=== PATIENT | male | born 1945 | race Caucasian/White ===

== ENCOUNTER → 2017-04-23 | Outpatient (CLI) | payer BC ==
[2017-04-23 09:49] LABS: BASO % 0.5 % (0.0-1.0); EOS # 0.1 K/mm3 (0.0-0.50); LARGE UNSTAINED CELL # 0.1 K/mm3 (0.0-0.4); LARGE UNSTAINED CELL % 1.3 % (0.0-4.0); LYMPH # 1.2 K/mm3 (1.5-4.5); LYMPH % 20.1 % (24.0-44.0); MEAN CORPUSCULAR HEMOGLOBIN 31.4 pg (27.0-33.0); MEAN CORPUSCULAR HGB CONC 33.9 g/dl (32.0-36.5); MEAN CORPUSCULAR VOLUME 92.6 fl (80.0-96.0); MONO # 0.3 K/mm3 (0.0-0.8); MONO % 5.9 % (0.0-5.0); NEUTROPHILS % 70.3 % (36.0-66.0); PLATELET COUNT, AUTOMATED 154 k/mm3 (150-450); RED CELL DISTRIBUTION WIDTH 12.6 % (11.5-14.5); WHITE BLOOD COUNT 5.6 K/mm3 (4.0-10.0)
[2017-04-23 10:06] LABS: ALBUMIN 3.6 GM/DL (3.2-5.2); ALBUMIN/GLOBULIN RATIO 1.16 (1.00-1.93); BILIRUBIN,TOTAL 0.4 MG/DL (0.2-1.0); CALCIUM LEVEL 8.4 MG/DL (8.8-10.2); CREATININE FOR GFR 1.32 MG/DL (0.70-1.30); GLOMERULAR FILTRATION RATE 57.3 (>49); POTASSIUM SERUM 4.6 MEQ/L (3.5-5.1); TOTAL PROTEIN 6.7 GM/DL (6.4-8.2)
== END ==
LOC: M LAB 08:56
PROVIDERS: ATTEND Internal Medicine
DX: Z00.00 Encounter for general adult medical examination without abnormal findings (principal); Z12.5 Encounter for screening for malignant neoplasm of prostate; E78.00 Pure hypercholesterolemia, unspecified; Z82.49 Family history of ischemic heart disease and other diseases of the circulatory system
CPT/HCPCS: 36415; 80053; 80061; 85025; G0103

== ENCOUNTER → 2018-05-21 | Outpatient (REF) | payer BC | LOC: M SFHCPLAZ 10:15 | DX: L82.1 Other seborrheic keratosis (principal); L57.0 Actinic keratosis; C44.309 Unspecified malignant neoplasm of skin of other parts of face | CPT/HCPCS: 88305 ==

== ENCOUNTER → 2018-06-24 | Outpatient (REF) | payer BC | LOC: M LAB REF 12:08 | DX: C44.309 Unspecified malignant neoplasm of skin of other parts of face (principal) | CPT/HCPCS: 88305 ==

== ENCOUNTER → 2018-10-30 | Outpatient (CLI) | payer BC ==
[2018-10-30 11:00] LABS: BASO % 0.5 % (0.0-1.0); EOS # 0.1 10^3/uL (0.0-0.50); EOS % 1.9 % (0.0-3.0); HEMOGLOBIN 15.2 g/dl (13.5-17.5); LYMPH # 1.2 10^3/uL (1.5-4.5); LYMPH % 20.9 % (24.0-44.0); MEAN CORPUSCULAR HEMOGLOBIN 31.2 pg (27.0-33.0); MEAN CORPUSCULAR HGB CONC 33.8 g/dl (32.0-36.5); MEAN CORPUSCULAR VOLUME 92.4 fl (80.0-96.0); MONO # 0.4 10^3/uL (0.0-0.8); MONO % 7.4 % (0.0-5.0); NEUTROPHILS % 68.8 % (36.0-66.0); PLATELET COUNT, AUTOMATED 128 10^3/uL (150-450); RED BLOOD COUNT 4.87 10^6/uL (4.30-6.10); WHITE BLOOD COUNT 5.8 10^3/uL (4.0-10.0)
[2018-10-30 11:36] LABS: ALBUMIN 3.8 GM/DL (3.2-5.2); ALT/SGPT 32 U/L (12-78); BILIRUBIN,TOTAL 0.4 MG/DL (0.2-1.0); BLOOD UREA NITROGEN 15 MG/DL (7-18); CALCIUM LEVEL 8.4 MG/DL (8.8-10.2); CARBON DIOXIDE LEVEL 28 MEQ/L (21-32); CHLORIDE LEVEL 108 MEQ/L (98-107); CHOLESTEROL LEVEL 139 MG/DL (<200); CHOLESTEROL RISK RATIO 3.021 (<5); CREATININE FOR GFR 1.23 MG/DL (0.70-1.30); GLOMERULAR FILTRATION RATE > 60.0 (>42); GLUCOSE, FASTING 95 MG/DL (70-100); HDL CHOLESTEROL 46 MG/DL (>40); LDL CHOLESTEROL 78 MG/DL (<100); NON-HDL-C 93 MG/DL; POTASSIUM SERUM 4.8 MEQ/L (3.5-5.1); SODIUM LEVEL 141 MEQ/L (136-145); TOTAL PROTEIN 6.5 GM/DL (6.4-8.2); TRIGLYCERIDES LEVEL 77 MG/DL (<150)
== END ==
LOC: M LAB 10:27
PROVIDERS: ATTEND Internal Medicine
DX: Z00.00 Encounter for general adult medical examination without abnormal findings (principal); E78.00 Pure hypercholesterolemia, unspecified; Z12.5 Encounter for screening for malignant neoplasm of prostate; Z82.49 Family history of ischemic heart disease and other diseases of the circulatory system
CPT/HCPCS: 36415; 80053; 80061; 85025; G0103

== ENCOUNTER → 2019-09-03 | Outpatient (CLI) | payer BC ==
--- NOTE | 2019-09-03 13:01 | REP ---
Two-view chest: 09/03/2019. Indication: Cough. Comparison: 06/15/2015. Findings: There is no air space consolidation, pleural effusion or pneumothorax. The cardiomediastinal silhouette is unremarkable. Impression: No acute cardiopulmonary process. Electronically Signed by Jose Ventura DO 09/03/2019 09:26 A
== END ==
LOC: M WUC 09:10
PROVIDERS: ATTEND Registered Nurse
DX: R05 Cough (principal)

== ENCOUNTER → 2019-09-03 | Outpatient (REF) | payer BC ==
[2019-09-03 13:04] LABS: BASO % 0.6 % (0.0-1.0); EOS # 0.2 10^3/uL (0.0-0.5); EOS % 3.2 % (0.0-3.0); HEMATOCRIT 43.2 % (42.0-52.0); HEMOGLOBIN 14.2 g/dl (13.5-17.5); LYMPH # 1.3 10^3/uL (1.5-5.0); LYMPH % 24.8 % (24.0-44.0); MEAN CORPUSCULAR HEMOGLOBIN 30.7 pg (27.0-33.0); MEAN CORPUSCULAR HGB CONC 32.9 g/dl (32.0-36.5); MEAN CORPUSCULAR VOLUME 93.3 fl (80.0-96.0); MONO # 0.4 10^3/uL (0.0-0.8); MONO % 8.3 % (0.0-5.0); NEUTROPHILS # 3.3 10^3/uL (1.5-8.5); NEUTROPHILS % 62.3 % (36.0-66.0); PLATELET COUNT, AUTOMATED 148 10^3/uL (150-450); RED BLOOD COUNT 4.63 10^6/uL (4.30-6.10); WHITE BLOOD COUNT 5.3 10^3/uL (4.0-10.0)
[2019-09-03 13:31] LABS: CALCIUM LEVEL 7.9 MG/DL (8.8-10.2); CREATININE FOR GFR 1.29 MG/DL (0.70-1.30); GLOMERULAR FILTRATION RATE 58.3 (>42); POTASSIUM SERUM 4.2 MEQ/L (3.5-5.1)
== END ==
LOC: M LAB REF 12:21
PROVIDERS: ATTEND Registered Nurse
DX: I10 Essential (primary) hypertension (principal); R05 Cough

== ENCOUNTER → 2019-10-08 | Outpatient (CLI) | payer BC ==
--- NOTE | 2019-10-08 15:46 | REP ---
The right knee five views : There is no fracture or dislocation. Mineralization and joint spaces are normal. There are no calcifications or foreign bodies. Impression: Negative right knee . Electronically Signed by Marino Yao MD 10/08/2019 03:38 P
== END ==
LOC: M WUC 12:23
PROVIDERS: ATTEND Physician Assistant
DX: M25.561 Pain in right knee (principal)

== ENCOUNTER → 2019-11-02 | Outpatient (CLI) | payer BC ==
[2019-11-02 10:13] LABS: BASO % 0.6 % (0.0-1.0); EOS # 0.1 10^3/uL (0.0-0.5); EOS % 1.8 % (0.0-3.0); HEMATOCRIT 40.4 % (42.0-52.0); HEMOGLOBIN 13.8 g/dl (13.5-17.5); LYMPH % 19.1 % (24.0-44.0); MEAN CORPUSCULAR HEMOGLOBIN 31.1 pg (27.0-33.0); MEAN CORPUSCULAR HGB CONC 34.2 g/dl (32.0-36.5); MONO # 0.5 10^3/uL (0.0-0.8); MONO % 8.3 % (0.0-5.0); NEUTROPHILS # 3.8 10^3/uL (1.5-8.5); NEUTROPHILS % 69.8 % (36.0-66.0); PLATELET COUNT, AUTOMATED 144 10^3/uL (150-450); RED BLOOD COUNT 4.44 10^6/uL (4.30-6.10); WHITE BLOOD COUNT 5.4 10^3/uL (4.0-10.0)
[2019-11-02 10:44] LABS: ALBUMIN 2.8 GM/DL (3.2-5.2); ALT/SGPT 28 U/L (12-78); BILIRUBIN,TOTAL 0.4 MG/DL (0.2-1.0); BLOOD UREA NITROGEN 22 MG/DL (7-18); CALCIUM LEVEL 8.5 MG/DL (8.8-10.2); CARBON DIOXIDE LEVEL 32 MEQ/L (21-32); CHLORIDE LEVEL 107 MEQ/L (98-107); CHOLESTEROL LEVEL 212 MG/DL (<200); CHOLESTEROL RISK RATIO 3.593 (<5); CREATININE FOR GFR 1.12 MG/DL (0.70-1.30); GLOMERULAR FILTRATION RATE > 60.0 (>42); GLUCOSE, FASTING 100 MG/DL (70-100); HDL CHOLESTEROL 59 MG/DL (>40); LDL CHOLESTEROL 138 MG/DL (<100); NON-HDL-C 153 MG/DL; POTASSIUM SERUM 4.3 MEQ/L (3.5-5.1); SODIUM LEVEL 141 MEQ/L (136-145); TOTAL PROTEIN 5.6 GM/DL (6.4-8.2); TRIGLYCERIDES LEVEL 76 MG/DL (<150)
== END ==
LOC: M LAB 09:19
PROVIDERS: ATTEND Internal Medicine
DX: I10 Essential (primary) hypertension (principal); Z12.5 Encounter for screening for malignant neoplasm of prostate; E78.00 Pure hypercholesterolemia, unspecified
CPT/HCPCS: 36415; 80053; 80061; 85025; G0103

== ENCOUNTER → 2020-03-03 | Outpatient (CLI) | payer BC ==
[2020-03-03 09:20] LABS: CALCIUM LEVEL 7.3 MG/DL (8.8-10.2); CREATININE FOR GFR 1.78 MG/DL (0.70-1.30); GLOMERULAR FILTRATION RATE 40.2 (>42); POTASSIUM SERUM 3.8 MEQ/L (3.5-5.1)
== END ==
LOC: M LAB 08:20
PROVIDERS: ATTEND Physician Assistant Medical
DX: I12.9 Hypertensive chronic kidney disease with stage 1 through stage 4 chronic kidney disease, or unspecified chronic kidney disease (principal); N18.3 Chronic kidney disease, stage 3 (moderate)

== ENCOUNTER → 2020-03-08 | Outpatient (REF) | payer BC ==
[~2020-03-08] MED LIST: CRES10TA PO; ELIQ2.5T PO; LIPI20TA PO; LISI-538 PO; OMEP10CASR PO; PRED20TA PO; SYNT25TA PO; TORS20TA2 PO
[2020-03-08 13:15] LABS: APPEARANCE, URINE HAZY (CLEAR); BACTERIA, URINE AUTO NEGATIVE (NEGATIVE); BILIRUBIN, URINE AUTO NEGATIVE (NEGATIVE); BLOOD, URINE BLOOD 1+ (NEGATIVE); COLOR, URINE YELLOW (YELLOW); GLUCOSE, URINE (UA) AUTO NEGATIVE (NEGATIVE); KETONE, URINE AUTO NEGATIVE (NEGATIVE); LEUKOCYTE ESTERASE, URINE AUTO NEGATIVE (NEGATIVE); MUCUS, URINE SMALL (NEGATIVE); NITRITE, URINE AUTO NEGATIVE (NEGATIVE); PROTEIN, URINE AUTO 3+ mg/dL (NEGATIVE); RBC, URINE AUTO 6 /HPF (0-3); SQUAMOUS EPITHELIAL CELL UR AU 0 /HPF (0-6); UROBILINOGEN, URINE AUTO 0.2 mg/dL (0.0-2.0); WBC, URINE AUTO 2 /HPF (0-3)
[2020-03-08 16:38] LABS: ALBUMIN 2.2 GM/DL (3.2-5.2); BILIRUBIN,TOTAL 0.3 MG/DL (0.2-1.0); CREATININE FOR GFR 1.59 MG/DL (0.70-1.30); GLOMERULAR FILTRATION RATE 45.8 (>42); POTASSIUM SERUM 3.8 MEQ/L (3.5-5.1); THYROID STIMULATING HORMONE 10.4 uIU/ML (0.358-3.740)
== END ==
LOC: M LAB REF 12:39
PROVIDERS: ATTEND Physician Assistant Medical
DX: I12.9 Hypertensive chronic kidney disease with stage 1 through stage 4 chronic kidney disease, or unspecified chronic kidney disease (principal); N18.3 Chronic kidney disease, stage 3 (moderate)

== ENCOUNTER → 2020-03-21 | Outpatient (REF) | payer BC ==
[2020-03-21 18:00] LABS: BACTERIA, URINE AUTO NEGATIVE (NEGATIVE); MUCUS, URINE SMALL (NEGATIVE); RBC, URINE AUTO 4 /HPF (0-3); SQUAMOUS EPITHELIAL CELL UR AU 0 /HPF (0-6); WBC, URINE AUTO 2 /HPF (0-3)
[2020-03-21 18:07] LABS: TOTAL PROTEIN 4.6 GM/DL (6.4-8.2)
[2020-05-31 14:31] LABS: ALBUMIN 2.45 GM/DL (3.29-5.55); ALBUMIN % 53.2 % (55.8-66.1); ALPHA-1-GLOBULIN % 5.9 % (2.9-4.9); ALPHA-1-GLOBULINS 0.27 GM/DL (0.17-0.41); ALPHA-2-GLOBULINS 0.89 GM/DL (0.42-0.99); ALPHA-2-GLOBULINS % 19.3 % (7.1-11.8); BETA-1-GLOBULINS 0.29 GM/DL (0.28-0.60); BETA-1-GLOBULINS % 6.3 % (4.7-7.2); BETA-2-GLOBULINS 0.26 GM/DL (0.19-0.55); BETA-2-GLOBULINS % 5.7 % (3.2-6.5); GAMMA GLOBULIN % 9.6 % (11.1-18.8); GAMMA GLOBULINS 0.44 GM/DL (0.65-1.58)
== END ==
LOC: M LAB REF 16:54
PROVIDERS: ATTEND Internal Medicine
DX: R80.9 Proteinuria, unspecified (principal)

== ENCOUNTER → 2020-03-23 | Outpatient (REF) | payer BC ==
[2020-03-23 09:18] LABS: TOTAL PROTEIN 24 HOUR URINE 11206.8 MG/24HR (50-150); URINE TOTAL PROTEIN 1245.2 MG/DL (0-12)
== END ==
LOC: M LAB REF 08:41
PROVIDERS: ATTEND Internal Medicine
DX: R80.9 Proteinuria, unspecified (principal)

== ENCOUNTER → 2020-03-28 | Outpatient (REF) | payer BC ==
[2020-04-26 13:57] LABS: ANTI DS-DNA AB SEE SEPARATE REPORT; ANTI-GLOMERULAR BASEMENT MEMB See Separate Report; ANTINUCLEAR ANTIBODIES DIRECT See Separate Report
[2020-04-26 14:10] LABS: FREE KAPPA LIGHT CHAINS SERUM SEE SEPARATE REPORT
[2020-04-26 14:31] LABS: CYTOPLASMIC NEUTROP AB ANCA-C SEE SEPARATE REPORT
[2020-05-03 11:16] LABS: COMPLEMENT C3 114 MG/DL (90-180); COMPLEMENT C4 26 MG/DL (10-40); HEPATITIS B CORE ANTIBODY IGM NEGATIVE (NEGATIVE); HEPATITIS B SURFACE ANTIBODY NEGATIVE (POSITIVE); HEPATITIS B SURFACE ANTIGEN NEGATIVE (NEGATIVE); IRON (FE) 115 UG/DL (65-175)
[2020-05-03 11:17] LABS: HEPATITIS C VIRUS ABY INDEX 0.1 INDEX (<0.8); PERCENT SATURATION 65.3 % (19.7-50.0); TOTAL IRON BINDING CAPACITY 176 UG/DL (250-450)
[2020-05-03 11:19] LABS: FOLATE 12.4 NG/ML; TOTAL PROTEIN 4.3 GM/DL (6.4-8.2); VITAMIN B12 LEVEL 539 PG/ML
[2020-05-03 11:20] LABS: FERRITIN 265 NG/ML (26-388)
== END ==
LOC: M LAB REF 12:23
PROVIDERS: ATTEND Internal Medicine Nephrology
DX: N04.9 Nephrotic syndrome with unspecified morphologic changes (principal); D64.9 Anemia, unspecified

== ENCOUNTER → 2020-04-11 | Outpatient (REF) | payer BC ==
[2020-05-23 08:33] LABS: Lyme Disease IgG/IgM Antibodie See Separate Report
== END ==
LOC: M LAB REF 12:14
PROVIDERS: ATTEND Internal Medicine Nephrology
DX: N04.9 Nephrotic syndrome with unspecified morphologic changes (principal)

== ENCOUNTER → 2020-04-26 | Outpatient (POV) | payer BC ==
--- NOTE | 2020-05-02 13:11 | IRCOV ---
[facility] IR Consult Office Visit IR Consult Office Visit DATE: Apr 26, 2020 Patient agreed to this telephone consultation. I spent 30 minutes reviewing patient's history and talking to the patient on the phone. REASON FOR CONSULTATION/CHIEF COMPLAINT: Proteinuria. HISTORY OF PRESENT ILLNESS: 74-year-old male previously healthy, presented with bilateral lower extremity swelling after a viral infection in August 2019. Viral infection was associated with cough, generalized weakness, congestion and wheezing. Soon after recovery, he developed bilateral lower extremity swelling and fluid overload, he was diagnosed with hypertension, hypothyroidism and proteinuria. He was started on diltiazem for his hypertension. His edema was treated with Lasix. His renal function continues to deteriorate. Patient is referred for kidney biopsy. No prior kidney biopsies. No bleeding disorders. Patient has started on Eliquis by nephrology for risk of DVT in setting of nephrotic syndrome. Patient stopped taking aspirin weeks ago. No family history of kidney disease. No prior problems with sedation. ALLERGIES: Please see below. HOME MEDICATIONS: Please see below. PAST MEDICAL HISTORY: Hypercholesterolemia Essential hypertension Renal failure Hypothyroidism Proteinuria BPH Skin cancer PAST SURGICAL HISTORY: Cholecystectomy FAMILY HISTORY: Heart disease SOCIAL HISTORY: Nonsmoker. Occasional alcohol. Denies drugs. REVIEW OF SYSTEMS: Otherwise negative. PHYSICAL EXAMINATION: No video on patient site. LABORATORY DATA: 03/28/2020: Hemoglobin 12.7 hematocrit 36.6 WBC 5.9 platelets 196 sodium 136.8 potassium 4.3 BUN 24.9 creatinine 1.65 GFR 41. Creatinine in September 2019: 1.2 03/23/2020 24 hour urine: protein 11.2 g Imaging: No imaging ASSESSMENT/PLAN: 74-year-old male with hypertension, hypothyroidism, hypercholesterolemia and progressive worsening renal failure over the past several months associated with nephrotic range proteinuria. We discussed the risks and benefits of kidney biopsy and patient would like to proceed. We have scheduled the patient for a kidney biopsy. Patient to hold his Eliquis 48 hours prior to biopsy and resume 24 hours postbiopsy. I spent 30 minutes in consultation with the patient. Thank you for this referral. Nasrin Christy: Danny Gibbons Allergies Coded Allergies: MS - No Known Drug Allergy (Unverified Allergy, Unknown, 12/02/12) Home Medications Scheduled Apixaban (Eliquis), 2.5 MG PO BID, (Reported) Levothyroxine Sodium (Synthroid), 25 MCG PO DAILY, (Reported) Lisinopril (Lisinopril), 20 MG PO DAILY, (Reported) Rosuvastatin Calcium (Crestor), 10 MG PO QHS, (Reported) Torsemide (Torsemide), 40 MG PO DAILY, (Reported) WILLY LOCO MD May 02, 2020 13:11
== END ==
LOC: M TMIRPOV 08:15
PROVIDERS: ATTEND Radiology Diagnostic Radiology
DX: R80.9 Proteinuria, unspecified (principal); R60.0 Localized edema; I10 Essential (primary) hypertension; E03.9 Hypothyroidism, unspecified; E78.00 Pure hypercholesterolemia, unspecified; N40.0 Benign prostatic hyperplasia without lower urinary tract symptoms; Z85.828 Personal history of other malignant neoplasm of skin

== ENCOUNTER → 2020-04-28 | Outpatient (CLI) | payer BC ==
[~2020-04-28] MED LIST changes: +LIDOCAINE 1% MDV 20ML VIAL As Ordered ONE; +MIDAZOLAM INJ 2MG/2ML VIAL (J2250 PER 1MG) As Ordered ONE; +PROMETHAZINE INJ 25 MG/ML VIAL (J2550) As Ordered ONE; +diphenhydrAMINE 50MG/ML VIAL (J1200) As Ordered ONE; +fentaNYL 100 MCG/2 ML INJECTION (J3010) As Ordered ONE
--- NOTE | 2020-04-28 09:23 | IRHP ---
[facility] IR Pre-Procedure H & P General Date of Service: Apr 28, 2020 Procedure: Same Day Surgery Interval History and Physical I have seen the patient and reviewed last H & P performed within 30 days. There is no significant interval change. History of Present Illness Chief Complaint The patient is a 74-year-old male admitted with a reason for visit of Nephrotic Syndrome, Htn. PRE-PROCEDURE DIAGNOSIS: nephrotic syndrome HEART: normal rate. LUNGS: normal breathing at rest. ASA Classification ASA Classification: III-Severe systemic dis. Mallampati Score: II NPO: Yes Problems with prior sedation: No Obstructive Sleep Apnea: No Plan moderate sedation Allergies Coded Allergies: MS - No Known Drug Allergy (Unverified Allergy, Unknown, 12/02/12) Home Medications Scheduled Apixaban (Eliquis), 2.5 MG PO BID, (Reported) Levothyroxine Sodium (Synthroid), 25 MCG PO DAILY, (Reported) Lisinopril (Lisinopril), 20 MG PO DAILY, (Reported) Rosuvastatin Calcium (Crestor), 10 MG PO QHS, (Reported) Torsemide (Torsemide), 40 MG PO DAILY, (Reported) VS, I&O, 24H, Fishbone Vital Signs/I&O Vital Signs Date Time Temp Pulse Resp B/P (MAP) Pulse Ox O2 Delivery O2 Flow Rate FiO2 04/28/20 08:10 98.3 62 18 97 Room Air WILLY LOCO MD Apr 28, 2020 09:23
[2020-04-28 12:55] VITALS: BP 164/81
--- NOTE | 2020-05-26 10:26 | POST-OPPD ---
Postoperative Procedure Note Date Of Procedure: Apr 28, 2020 Time Of Procedure: 10:[address] Guided kidney biopsy IR Moderate sedation Clinical Information:Renal failure Physician: Dr. Tran. Procedure: The patient was advised of the benefits, risks, and alternatives of the procedure and informed consent was obtained. A time out was performed with verification of the patient's name, MRN, site of procedure, and type of procedure to be performed. The patient was positioned in the prone position on the CT table. The site was prepped and draped in the usual sterile fashion. Moderate sedation was performed by the physician including the presence of an independent trained observer who assisted in monitoring the patient's level of consciousness and physiological status. Following the administration of fentanyl and Versed, the physician spent 45 minutes of continuous [id number] time with the patient. Preliminary CT demonstrates unremarkable left kidney. The skin and expected tract were anesthestized with lidocaine.A 17-gauge coaxial needle was advanced under intermittent CT guidance to the left kidney lower pole cortex. An 18-gauge Biopince device was advanced through the coaxial needle and used to obtain 3 cores through the lower pole of the left kidney, with CT confirmation. The needle was removed, pressure held and hemostasis achieved. A follow-up CT through the area demonstrates no significant hematoma. A sterile dressing was applied to the site. The patient tolerated the procedure well and was returned to the PRU in stable condition. EBL:Less than 5 mL. Complications:None Conclusion:1. CT demonstrates unremarkable left kidney 2. Successful CT-guided renal biopsy. Patient to follow-up with referring provider for biopsy results. Thank you for this referral WILLY TRAN MD May 26, 2020 10:26
== END ==
LOC: M IRPRO 08:02
PROVIDERS: ATTEND Internal Medicine Nephrology
DX: N04.9 Nephrotic syndrome with unspecified morphologic changes (principal); N18.3 Chronic kidney disease, stage 3 (moderate); R60.1 Generalized edema
CPT/HCPCS: 50200; 77012; 88300; 99152; 99153; J2250; J3010

== ENCOUNTER → 2020-05-10 | Outpatient (REF) | payer BC ==
[~2020-05-10] MED LIST changes: -LIDOCAINE 1% MDV 20ML VIAL As Ordered ONE; -MIDAZOLAM INJ 2MG/2ML VIAL (J2250 PER 1MG) As Ordered ONE; -PROMETHAZINE INJ 25 MG/ML VIAL (J2550) As Ordered ONE; -diphenhydrAMINE 50MG/ML VIAL (J1200) As Ordered ONE; -fentaNYL 100 MCG/2 ML INJECTION (J3010) As Ordered ONE
== END ==
LOC: M LAB REF 19:49
PROVIDERS: ATTEND Internal Medicine Nephrology
DX: R60.1 Generalized edema (principal); D68.69 Other thrombophilia; I12.9 Hypertensive chronic kidney disease with stage 1 through stage 4 chronic kidney disease, or unspecified chronic kidney disease; N18.9 Chronic kidney disease, unspecified

== ENCOUNTER → 2020-05-12 | Outpatient (CLI) | payer BC | LOC: M LAB 10:00 | PROVIDERS: ATTEND Internal Medicine Nephrology | DX: N04.2 Nephrotic syndrome with diffuse membranous glomerulonephritis (principal) ==

== ENCOUNTER → 2020-05-13 | Outpatient (REF) | payer BC ==
[2020-05-13 22:46] LABS: CREATININE 24 HOUR, URINE 1897.2 MG/24HR (950-2500)
[2020-05-13 22:58] LABS: URINE TOTAL PROTEIN 289.5 MG/DL (0-12)
[2020-05-13 22:59] LABS: TOTAL PROTEIN 24 HOUR URINE 4429.3 MG/24HR (50-150)
== END ==
LOC: M LAB REF 16:50
PROVIDERS: ATTEND Internal Medicine Nephrology
DX: N04.2 Nephrotic syndrome with diffuse membranous glomerulonephritis (principal)

== ENCOUNTER → 2020-06-01 | Outpatient (CLI) | payer BC ==
[~2020-06-01] MED LIST changes: +GASTROGRAFIN SOLUTION 30ML (Q9963) As Ordered ONE; +ISOVUE-370 76% 100ML VIAL As Ordered ONE
--- NOTE | 2020-06-08 16:50 | REP ---
CT ABDOMEN AND PELVIS WITH IV AND ORAL CONTRAST HISTORY: Nephrotic syndrome, generalized edema, hypertensive chronic kidney disease. CT CONTRAST DOSE: 100 mL of intravenous Isovue 370. FINDINGS: Digital preliminary putty mixer and applier radiograph demonstrates right upper quadrant clips, a dextroconvex lumbar curvature, and a normal bowel gas pattern. The liver is normal in size, homogeneous in texture. The spleen is unremarkable. The gallbladder is surgically absent. No biliary ductal dilation is seen. No abnormality is noted in the pancreas, normal adrenal glands are seen bilaterally. The kidneys enhanced symmetrically and are morphologically intact. The left kidney measures 12.6 cm in length. Right renal length measurement is 11.3 cm. No hydronephrosis is seen. No intrarenal calculus is observed. Normal caliber aorta is seen. No retroperitoneal mass or adenopathy is seen. Iliac arteries are tortuous, but appear widely patent. Small bowel loops are unremarkable in the upper abdomen. There is largely empty transverse colon, question mural thickening, and pericolonic stranding raising suspicion of enterocolitis. There are scattered diverticulosis changes in the descending colon and mild diverticulosis is seen in the sigmoid colon without CT evidence of diverticulitis. Normal appendix is seen. No abdominal wall defect is observed. No bony destructive lesion is appreciated. IMPRESSION: Post cholecystectomy. Question enterocolitis affecting the transverse colon. Scattered left colonic diverticulosis. Otherwise negative. MTDD
--- NOTE | 2020-06-08 16:51 | REP ---
CT CHEST WITH INTRAVENOUS (IV) CONTRAST HISTORY: Nephrotic syndrome. Diffuse membranous glomerulonephritis. Hypertensive chronic kidney disease. Generalized edema. CT CONTRAST DOSE: 100 mL of intravenous Isovue-[address] administered[address] CHEST [address]: None. FINDINGS: Preliminary digital customer sales service manager radiograph is unremarkable. There is no evidence of pleural or pericardial effusion. No hilar or mediastinal mass is observed. There is extensive right and left coronary artery vascular calcification. There is a calcified granulomata in the left upper lobe along the major fissure. No pulmonary mass lesion is seen. No significant pulmonary nodule is appreciated. No infiltrate is seen. No bony destructive lesion is appreciated. There is an old healed rib fracture on the left. IMPRESSION: No active disease. MTDD
== END ==
LOC: M RAD 09:59
PROVIDERS: ATTEND Internal Medicine Nephrology
DX: I12.9 Hypertensive chronic kidney disease with stage 1 through stage 4 chronic kidney disease, or unspecified chronic kidney disease (principal); N18.9 Chronic kidney disease, unspecified; R60.1 Generalized edema; K57.90 Diverticulosis of intestine, part unspecified, without perforation or abscess without bleeding; Z90.49 Acquired absence of other specified parts of digestive tract
CPT/HCPCS: 71260; 74177; Q9963; Q9967

== ENCOUNTER 2020-06-24 07:14 | Outpatient (CLI) | payer BC ==
[2020-06-24] VITALS (8 sets, daily range): BP systolic 118–150; BP diastolic 58–77
[~2020-06-24] VITALS: Ht 172.7 cm; Wt 88.7 kg
[~2020-06-24 07:14] MED LIST changes: -GASTROGRAFIN SOLUTION 30ML (Q9963) As Ordered ONE; -ISOVUE-370 76% 100ML VIAL As Ordered ONE; -LIPI20TA PO; +NS 1,000 ML IV SCH; -OMEP10CASR PO; -PRED20TA PO
[2020-06-24] MEDS ORDERED: EPINEPHrine INJ 1 MG/ML 1ML AMP IM PRN (07:30)
[2020-06-24] MEDS ORDERED: diphenhydrAMINE 50MG/ML VIAL (J1200) IV PRN (07:30)
[2020-06-24] MEDS ORDERED: NS IV ONE (07:30)
[2020-06-24] MEDS ORDERED: methylPREDNISolone 125MG 2ML VIAL IV PRN (07:30)
[2020-06-24] MEDS ORDERED: RITUXIMAB PVVR IV ONE (07:30)
[2020-06-24] MEDS ORDERED: ALBUTEROL SULFATE 2.5 MG/0.5 ML INH NEB SOLN INH PRN (07:30)
[2020-06-24 07:41] LABS: HEMATOCRIT 31.1 % (42.0-52.0); HEMOGLOBIN 10.4 g/dl (13.5-17.5); MEAN CORPUSCULAR HEMOGLOBIN 30.9 pg (27.0-33.0); MEAN CORPUSCULAR HGB CONC 33.4 g/dl (32.0-36.5); MEAN CORPUSCULAR VOLUME 92.3 fl (80.0-96.0); PLATELET COUNT, AUTOMATED 144 10^3/uL (150-450); RED BLOOD COUNT 3.37 10^6/uL (4.30-6.10); WHITE BLOOD COUNT 16.4 10^3/uL (4.0-10.0)
[2020-06-24] MEDS ORDERED: LIPI20TA PO (07:50)
[2020-06-24] MEDS ORDERED: OMEP10CASR PO (07:50)
[2020-06-24] MEDS ORDERED: PRED20TA PO (07:50)
== END 2020-06-24 13:30 | disposition home or self-care (01) ==
LOC: M INFU 07:14
PROVIDERS: ATTEND Internal Medicine Nephrology
DX: N03.2 Chronic nephritic syndrome with diffuse membranous glomerulonephritis (principal)
CPT/HCPCS: 36415; 85027; 96413; 96415; Q5119

== ENCOUNTER 2020-07-01 07:05 | Outpatient (CLI) | payer BC ==
[2020-07-01] VITALS (8 sets, daily range): BP systolic 130–169; BP diastolic 62–85
[~2020-07-01] VITALS: Ht 172.7 cm; Wt 88.7 kg
[~2020-07-01 07:05] MED LIST changes: +LIPI20TA PO; -NS 1,000 ML IV SCH; +OMEP10CASR PO; +PRED20TA PO
[2020-07-01] MEDS ORDERED: RITUXIMAB PVVR IV ONE (07:30)
[2020-07-01] MEDS ORDERED: diphenhydrAMINE 50MG/ML VIAL (J1200) IV PRN (07:30)
[2020-07-01] MEDS ORDERED: EPINEPHrine INJ 1 MG/ML 1ML AMP IM PRN (07:30)
[2020-07-01] MEDS ORDERED: NS IV ONE (07:30)
[2020-07-01] MEDS ORDERED: NS 1,000 ML IV SCH (07:30)
[2020-07-01] MEDS ORDERED: ALBUTEROL SULFATE 2.5 MG/0.5 ML INH NEB SOLN INH PRN (07:30)
[2020-07-01] MEDS ORDERED: methylPREDNISolone 125MG 2ML VIAL IV PRN (07:30)
[2020-07-01 09:28] LABS: HEMATOCRIT 31.9 % (42.0-52.0); HEMOGLOBIN 10.6 g/dl (13.5-17.5); MEAN CORPUSCULAR HEMOGLOBIN 31.1 pg (27.0-33.0); MEAN CORPUSCULAR HGB CONC 33.2 g/dl (32.0-36.5); MEAN CORPUSCULAR VOLUME 93.5 fl (80.0-96.0); PLATELET COUNT, AUTOMATED 126 10^3/uL (150-450); RED BLOOD COUNT 3.41 10^6/uL (4.30-6.10); WHITE BLOOD COUNT 8.7 10^3/uL (4.0-10.0)
== END 2020-07-01 12:40 | disposition home or self-care (01) ==
LOC: M INFU 07:05
PROVIDERS: ATTEND Internal Medicine Nephrology
DX: N03.2 Chronic nephritic syndrome with diffuse membranous glomerulonephritis (principal)
CPT/HCPCS: 36415; 85027; 96413; 96415; Q5119

== ENCOUNTER 2020-07-08 08:27 | Outpatient (CLI) | payer BC ==
[2020-07-08] VITALS (8 sets, daily range): BP systolic 136–169; BP diastolic 66–82
[~2020-07-08] VITALS: Ht 172.7 cm; Wt 88.0 kg
[2020-07-08] MEDS ORDERED: NS 1,000 ML IV SCH (08:30)
[2020-07-08] MEDS ORDERED: diphenhydrAMINE 50MG/ML VIAL (J1200) IV PRN (08:30)
[2020-07-08] MEDS ORDERED: EPINEPHrine INJ 1 MG/ML 1ML AMP IM PRN (08:30)
[2020-07-08] MEDS ORDERED: RITUXIMAB PVVR IV ONE (08:30)
[2020-07-08] MEDS ORDERED: ALBUTEROL SULFATE 2.5 MG/0.5 ML INH NEB SOLN INH PRN (08:30)
[2020-07-08] MEDS ORDERED: methylPREDNISolone 125MG 2ML VIAL IV PRN (08:30)
[2020-07-08] MEDS ORDERED: NS IV ONE (08:30)
[2020-07-08 08:46] LABS: HEMATOCRIT 30.3 % (42.0-52.0); HEMOGLOBIN 9.9 g/dl (13.5-17.5); MEAN CORPUSCULAR HEMOGLOBIN 30.6 pg (27.0-33.0); MEAN CORPUSCULAR HGB CONC 32.7 g/dl (32.0-36.5); MEAN CORPUSCULAR VOLUME 93.5 fl (80.0-96.0); PLATELET COUNT, AUTOMATED 179 10^3/uL (150-450); RED BLOOD COUNT 3.24 10^6/uL (4.30-6.10)
== END 2020-07-08 14:00 | disposition home or self-care (01) ==
LOC: M INFU 08:27
PROVIDERS: ATTEND Internal Medicine Nephrology
DX: N03.2 Chronic nephritic syndrome with diffuse membranous glomerulonephritis (principal)
CPT/HCPCS: 36592; 85027; 96413; 96415; Q5119

== ENCOUNTER 2020-07-15 07:29 | Outpatient (CLI) | payer BC ==
[~2020-07-15] VITALS: Ht 172.7 cm; Wt 88.0 kg
[2020-07-15] VITALS (8 sets, daily range): BP systolic 124–159; BP diastolic 59–81
[~2020-07-15 07:29] MED LIST changes: +ALBUTEROL SULFATE 2.5 MG/0.5 ML INH NEB SOLN INH PRN; +EPINEPHrine INJ 1 MG/ML 1ML AMP IM PRN; +NS 1,000 ML IV SCH; +diphenhydrAMINE 50MG/ML VIAL (J1200) IV PRN; +methylPREDNISolone 125MG 2ML VIAL IV PRN
[2020-07-15] MEDS ORDERED: NS IV ONE ×2 (07:30→08:15)
[2020-07-15] MEDS ORDERED: RITUXIMAB PVVR IV ONE ×2 (07:30→08:15)
[2020-07-15 07:55] LABS: HEMATOCRIT 29.9 % (42.0-52.0); MEAN CORPUSCULAR HEMOGLOBIN 31.6 pg (27.0-33.0); MEAN CORPUSCULAR HGB CONC 33.4 g/dl (32.0-36.5); MEAN CORPUSCULAR VOLUME 94.6 fl (80.0-96.0); PLATELET COUNT, AUTOMATED 151 10^3/uL (150-450); RED BLOOD COUNT 3.16 10^6/uL (4.30-6.10); WHITE BLOOD COUNT 9.3 10^3/uL (4.0-10.0)
== END 2020-07-15 12:00 | disposition home or self-care (01) ==
LOC: M INFU 07:29
PROVIDERS: ATTEND Internal Medicine Nephrology
DX: N03.2 Chronic nephritic syndrome with diffuse membranous glomerulonephritis (principal)
CPT/HCPCS: 36592; 85027; 96413; 96415; Q5119

== ENCOUNTER → 2020-10-03 | Outpatient (CLI) | payer BC ==
[~2020-10-03] MED LIST changes: -ALBUTEROL SULFATE 2.5 MG/0.5 ML INH NEB SOLN INH PRN; -EPINEPHrine INJ 1 MG/ML 1ML AMP IM PRN; -NS 1,000 ML IV SCH; -diphenhydrAMINE 50MG/ML VIAL (J1200) IV PRN; -methylPREDNISolone 125MG 2ML VIAL IV PRN
[2020-10-03 10:15] LABS: HEMATOCRIT 37.6 % (42.0-52.0); HEMOGLOBIN 12.5 g/dl (13.5-17.5); MEAN CORPUSCULAR HEMOGLOBIN 31.3 pg (27.0-33.0); MEAN CORPUSCULAR HGB CONC 33.2 g/dl (32.0-36.5); MEAN CORPUSCULAR VOLUME 94.2 fl (80.0-96.0); PLATELET COUNT, AUTOMATED 158 10^3/uL (150-450); RED BLOOD COUNT 3.99 10^6/uL (4.30-6.10); WHITE BLOOD COUNT 8.7 10^3/uL (4.0-10.0)
[2020-10-03 10:40] LABS: ALBUMIN 2.8 GM/DL (3.2-5.2); BILIRUBIN,TOTAL 0.3 MG/DL (0.2-1.0); CALCIUM LEVEL 8.9 MG/DL (8.8-10.2); CHOLESTEROL RISK RATIO 3.253 (<5); CREATININE FOR GFR 1.45 MG/DL (0.70-1.30); GLOMERULAR FILTRATION RATE 50.8 (>42); POTASSIUM SERUM 4.5 MEQ/L (3.5-5.1)
== END ==
LOC: M LAB 09:32
DX: N28.9 Disorder of kidney and ureter, unspecified (principal)

== ENCOUNTER 2020-10-24 09:40 | Outpatient (CLI) | payer BC ==
[~2020-10-24] VITALS: Ht 172.7 cm; Wt 87.8 kg
[~2020-10-24 09:40] MED LIST changes: +ALBUTEROL SULFATE 2.5 MG/0.5 ML INH NEB SOLN INH PRN; +EPINEPHrine INJ 1 MG/ML 1ML AMP IM PRN; -LISI-538 PO; +LISI20TA33 PO; +diphenhydrAMINE 50MG/ML VIAL (J1200) IV PRN; +methylPREDNISolone 125MG 2ML VIAL IV PRN
[2020-10-24 09:45] VITALS: BP 134/68
[2020-10-24] MEDS ORDERED: RITUXIMAB PVVR IV ONE ×3 (09:45)
[2020-10-24] MEDS ORDERED: NS 1,000 ML IV SCH (09:45)
[2020-10-24] MEDS ORDERED: LISI10TA22 PO (10:10)
[2020-10-24 10:17] LABS: HEMATOCRIT 38.5 % (42.0-52.0); HEMOGLOBIN 12.8 g/dl (13.5-17.5); MEAN CORPUSCULAR HEMOGLOBIN 30.9 pg (27.0-33.0); MEAN CORPUSCULAR HGB CONC 33.2 g/dl (32.0-36.5); PLATELET COUNT, AUTOMATED 155 10^3/uL (150-450); RED BLOOD COUNT 4.14 10^6/uL (4.30-6.10); WHITE BLOOD COUNT 9.3 10^3/uL (4.0-10.0)
[2020-10-24 11:00] VITALS: BP 124/62
[2020-10-24 11:45] VITALS: BP 124/70
[2020-10-24 12:45] VITALS: BP 122/68
[2020-10-24 13:15] VITALS: BP 122/68
[2020-10-24 14:30] VITALS: BP 164/83
== END 2020-10-24 14:30 | disposition home or self-care (01) ==
LOC: M INFU 09:40
PROVIDERS: ATTEND Internal Medicine Nephrology
DX: N03.2 Chronic nephritic syndrome with diffuse membranous glomerulonephritis (principal)
CPT/HCPCS: 36415; 85027; 96413; 96415; Q5119

== ENCOUNTER 2020-10-31 10:26 | Outpatient (CLI) | payer BC ==
[~2020-10-31 10:26] MED LIST changes: +LISI10TA22 PO
[2020-10-31] MEDS ORDERED: RITUXIMAB PVVR IV ONE (10:30)
[2020-10-31] MEDS ORDERED: NS IV ONE (10:30)
[2020-10-31 11:30] VITALS: BP 157/80
[2020-10-31 12:03] LABS: HEMATOCRIT 38.9 % (42.0-52.0); MEAN CORPUSCULAR HEMOGLOBIN 30.6 pg (27.0-33.0); MEAN CORPUSCULAR HGB CONC 33.4 g/dl (32.0-36.5); MEAN CORPUSCULAR VOLUME 91.5 fl (80.0-96.0); PLATELET COUNT, AUTOMATED 163 10^3/uL (150-450); RED BLOOD COUNT 4.25 10^6/uL (4.30-6.10); WHITE BLOOD COUNT 13.1 10^3/uL (4.0-10.0)
== END 2020-10-31 11:30 | disposition home or self-care (01) ==
LOC: M INFU 10:26
PROVIDERS: ATTEND Internal Medicine Nephrology
DX: N03.2 Chronic nephritic syndrome with diffuse membranous glomerulonephritis (principal)

== ENCOUNTER 2021-05-17 08:53 | Outpatient (CLI) | payer BC ==
[~2021-05-17] VITALS: Ht 177.8 cm; Wt 90.7 kg
[2021-05-17 09:00] VITALS: BP 135/65
[2021-05-17] MEDS ORDERED: diphenhydrAMINE 25MG PO PRIOR TO INFUSION PO ONE (09:00)
[2021-05-17] MEDS ORDERED: NS 1,000 ML IV SCH (09:00)
[2021-05-17] MEDS ORDERED: ACETAMINOPHEN 650MG PO PRIOR TO INFUSION PO ONE (09:00)
[2021-05-17] MEDS ORDERED: NS IV ONE ×2 (09:00→10:30)
[2021-05-17] MEDS ORDERED: RITUXIMAB PVVR IV ONE ×2 (09:00→10:30)
[2021-05-17 09:22] LABS: HEMATOCRIT 36.9 % (42.0-52.0); HEMOGLOBIN 12.6 g/dl (13.5-17.5); MEAN CORPUSCULAR HEMOGLOBIN 31.3 pg (27.0-33.0); MEAN CORPUSCULAR HGB CONC 34.1 g/dl (32.0-36.5); MEAN CORPUSCULAR VOLUME 91.6 fl (80.0-96.0); PLATELET COUNT, AUTOMATED 165 10^3/uL (150-450); RED BLOOD COUNT 4.03 10^6/uL (4.30-6.10); WHITE BLOOD COUNT 7.5 10^3/uL (4.0-10.0)
[2021-05-17] MEDS ORDERED: SUSTANE EYE DROPS OU (09:42)
[2021-05-17] MEDS ORDERED: DRIS50003 PO (09:44)
[2021-05-17 11:15] VITALS: BP 126/77
[2021-05-17 11:45] VITALS: BP 127/71
[2021-05-17 12:15] VITALS: BP 115/62
[2021-05-17 12:45] VITALS: BP 117/61
[2021-05-17 14:10] VITALS: BP 168/79
== END 2021-05-17 14:10 | disposition home or self-care (01) ==
LOC: M INFU 08:53
PROVIDERS: ATTEND Internal Medicine Nephrology
DX: N03.2 Chronic nephritic syndrome with diffuse membranous glomerulonephritis (principal)
CPT/HCPCS: 36592; 85027; 96413; 96415; Q5119

== ENCOUNTER → 2021-06-15 | Outpatient (CLI) | payer BC ==
[~2021-06-15] MED LIST changes: -ALBUTEROL SULFATE 2.5 MG/0.5 ML INH NEB SOLN INH PRN; +DRIS50003 PO; -EPINEPHrine INJ 1 MG/ML 1ML AMP IM PRN; +SUSTANE EYE DROPS OU; -diphenhydrAMINE 50MG/ML VIAL (J1200) IV PRN; -methylPREDNISolone 125MG 2ML VIAL IV PRN
[2021-06-15 09:48] LABS: BASO % 0.5 % (0.0-1.0); EOS # 0.1 10^3/uL (0.0-0.5); EOS % 1.8 % (0.0-3.0); HEMOGLOBIN 12.7 g/dl (13.5-17.5); LYMPH # 1.7 10^3/uL (1.5-5.0); MEAN CORPUSCULAR HEMOGLOBIN 31.3 pg (27.0-33.0); MEAN CORPUSCULAR HGB CONC 33.4 g/dl (32.0-36.5); MEAN CORPUSCULAR VOLUME 93.6 fl (80.0-96.0); MONO # 0.7 10^3/uL (0.0-0.8); MONO % 10.4 % (2.0-8.0); NEUTROPHILS # 4.1 10^3/uL (1.5-8.5); NEUTROPHILS % 61.8 % (36.0-66.0); PLATELET COUNT, AUTOMATED 165 10^3/uL (150-450); RED BLOOD COUNT 4.06 10^6/uL (4.30-6.10); WHITE BLOOD COUNT 6.6 10^3/uL (4.0-10.0)
[2021-06-15 10:28] LABS: ALBUMIN 2.9 GM/DL (3.2-5.2); BILIRUBIN,TOTAL 0.4 MG/DL (0.2-1.0); CALCIUM LEVEL 8.7 MG/DL (8.8-10.2); CHOLESTEROL RISK RATIO 3.617 (<5); CREATININE FOR GFR 1.45 MG/DL (0.70-1.30); GLOMERULAR FILTRATION RATE 50.8 (>42); POTASSIUM SERUM 4.7 MEQ/L (3.5-5.1); THYROID STIMULATING HORMONE 2.14 uIU/ML (0.358-3.740); TOTAL PROTEIN 5.5 GM/DL (6.4-8.2)
== END ==
LOC: M LAB 09:06
PROVIDERS: ATTEND Internal Medicine
DX: E78.00 Pure hypercholesterolemia, unspecified (principal); I10 Essential (primary) hypertension; E03.9 Hypothyroidism, unspecified
CPT/HCPCS: 36415; 80053; 80061; 84443; 85025; G0103

== ENCOUNTER 2021-10-18 09:03 | Outpatient (CLI) | payer BC ==
[~2021-10-18] VITALS: Ht 172.7 cm; Wt 90.0 kg
[2021-10-18] VITALS (7 sets, daily range): BP systolic 97–156; BP diastolic 58–75
[~2021-10-18 09:03] MED LIST changes: +ALBUTEROL SULFATE 2.5 MG/0.5 ML INH NEB SOLN INH PRN; +EPINEPHrine INJ 1 MG/ML 1ML AMP IM PRN; +NS 1,000 ML IV SCH; +NS IV ONE; +RITUXIMAB PVVR IV ONE; +diphenhydrAMINE 50MG/ML VIAL (J1200) IV PRN; +methylPREDNISolone 125MG 2ML VIAL IV PRN
== END 2021-10-18 14:40 | disposition home or self-care (01) ==
LOC: M INFU 09:03
PROVIDERS: ATTEND Internal Medicine Nephrology
DX: N04.2 Nephrotic syndrome with diffuse membranous glomerulonephritis (principal)
CPT/HCPCS: 96413; 96415; Q5119

== ENCOUNTER → 2021-12-25 | Outpatient (CLI) | payer BC ==
[~2021-12-25] MED LIST changes: -ALBUTEROL SULFATE 2.5 MG/0.5 ML INH NEB SOLN INH PRN; -EPINEPHrine INJ 1 MG/ML 1ML AMP IM PRN; -NS 1,000 ML IV SCH; -NS IV ONE; -RITUXIMAB PVVR IV ONE; -diphenhydrAMINE 50MG/ML VIAL (J1200) IV PRN; -methylPREDNISolone 125MG 2ML VIAL IV PRN
[2021-12-25 10:15] LABS: BASO % 0.6 % (0.0-1.0); EOS # 0.1 10^3/uL (0.0-0.5); EOS % 1.1 % (0.0-3.0); HEMATOCRIT 40.8 % (42.0-52.0); HEMOGLOBIN 13.8 g/dl (13.5-17.5); LYMPH # 1.3 10^3/uL (1.5-5.0); LYMPH % 17.9 % (24.0-44.0); MEAN CORPUSCULAR HEMOGLOBIN 31.2 pg (27.0-33.0); MEAN CORPUSCULAR HGB CONC 33.8 g/dl (32.0-36.5); MEAN CORPUSCULAR VOLUME 92.3 fl (80.0-96.0); MONO # 0.5 10^3/uL (0.0-0.8); MONO % 7.3 % (2.0-8.0); NEUTROPHILS # 5.2 10^3/uL (1.5-8.5); NEUTROPHILS % 72.5 % (36.0-66.0); PLATELET COUNT, AUTOMATED 162 10^3/uL (150-450); RED BLOOD COUNT 4.42 10^6/uL (4.30-6.10); WHITE BLOOD COUNT 7.2 10^3/uL (4.0-10.0)
[2021-12-25 10:56] LABS: ALBUMIN 3.3 GM/DL (3.2-5.2); BILIRUBIN,TOTAL 0.4 MG/DL (0.2-1.0); CHOLESTEROL RISK RATIO 3.391 (<5); CREATININE FOR GFR 1.41 MG/DL (0.70-1.30); GLOMERULAR FILTRATION RATE 52.3 (>42); TOTAL PROTEIN 5.9 GM/DL (6.4-8.2)
== END ==
LOC: M LAB 09:43
PROVIDERS: ATTEND Internal Medicine
DX: E78.00 Pure hypercholesterolemia, unspecified (principal); I10 Essential (primary) hypertension

== ENCOUNTER 2022-05-02 07:27 | Outpatient (CLI) | payer BC ==
[2022-05-02] VITALS (8 sets, daily range): BP systolic 109–162; BP diastolic 67–89
[~2022-05-02] VITALS: Ht 172.7 cm; Wt 90.0 kg
[~2022-05-02 07:27] MED LIST changes: +ALBUTEROL SULFATE 2.5 MG/0.5 ML INH NEB SOLN INH PRN; +EPINEPHrine INJ 1 MG/ML 1ML AMP IM PRN; +diphenhydrAMINE 50MG/ML VIAL (J1200) IV PRN; +methylPREDNISolone 125MG 2ML VIAL IV PRN
[2022-05-02] MEDS ORDERED: NS IV ONE (08:00)
[2022-05-02] MEDS ORDERED: RITUXIMAB PVVR IV ONE (08:00)
[2022-05-02] MEDS ORDERED: NS 1,000 ML IV SCH (08:00)
== END 2022-05-02 12:30 | disposition home or self-care (01) ==
LOC: M INFU 07:27
DX: N03.9 Chronic nephritic syndrome with unspecified morphologic changes (principal)
CPT/HCPCS: 96413; 96415; Q5119

== ENCOUNTER → 2022-07-12 | Outpatient (CLI) | payer BC ==
[~2022-07-12] MED LIST changes: -ALBUTEROL SULFATE 2.5 MG/0.5 ML INH NEB SOLN INH PRN; -EPINEPHrine INJ 1 MG/ML 1ML AMP IM PRN; -diphenhydrAMINE 50MG/ML VIAL (J1200) IV PRN; -methylPREDNISolone 125MG 2ML VIAL IV PRN
[2022-07-12 11:08] LABS: BASO % 0.5 % (0.0-1.0); EOS # 0.2 10^3/uL (0.0-0.5); HEMATOCRIT 38.3 % (42.0-52.0); HEMOGLOBIN 12.7 g/dl (13.5-17.5); LYMPH # 1.1 10^3/uL (1.5-5.0); LYMPH % 17.9 % (24.0-44.0); MEAN CORPUSCULAR HEMOGLOBIN 31.1 pg (27.0-33.0); MEAN CORPUSCULAR HGB CONC 33.2 g/dl (32.0-36.5); MEAN CORPUSCULAR VOLUME 93.9 fl (80.0-96.0); MONO # 0.5 10^3/uL (0.0-0.8); MONO % 8.5 % (2.0-8.0); NEUTROPHILS # 4.4 10^3/uL (1.5-8.5); NEUTROPHILS % 69.6 % (36.0-66.0); PLATELET COUNT, AUTOMATED 178 10^3/uL (150-450); RED BLOOD COUNT 4.08 10^6/uL (4.30-6.10); WHITE BLOOD COUNT 6.4 10^3/uL (4.0-10.0)
[2022-07-12 11:46] LABS: ALBUMIN 3.1 GM/DL (3.2-5.2); BILIRUBIN,TOTAL 0.3 MG/DL (0.2-1.0); CALCIUM LEVEL 8.9 MG/DL (8.8-10.2); CHOLESTEROL RISK RATIO 3.595 (<5); CREATININE FOR GFR 1.46 MG/DL (0.70-1.30); GLOMERULAR FILTRATION RATE 50.2 (>42); THYROID STIMULATING HORMONE 1.61 uIU/ML (0.358-3.740)
== END ==
LOC: M LAB 10:23
PROVIDERS: ATTEND Internal Medicine
DX: E03.9 Hypothyroidism, unspecified (principal); I49.8 Other specified cardiac arrhythmias; E78.00 Pure hypercholesterolemia, unspecified; Z12.5 Encounter for screening for malignant neoplasm of prostate; I13.10 Hypertensive heart and chronic kidney disease without heart failure, with stage 1 through stage 4 chronic kidney disease, or unspecified chronic kidney disease
CPT/HCPCS: 36415; 80053; 80061; 82043; 84443; 85025; G0103

== ENCOUNTER → 2023-01-22 | Outpatient (CLI) | payer BC ==
[2023-01-22 09:25] LABS: BASO % 0.6 % (0.0-1.0); EOS # 0.2 10^3/uL (0.0-0.5); HEMATOCRIT 41.3 % (42.0-52.0); HEMOGLOBIN 13.8 g/dl (13.5-17.5); LYMPH # 1.4 10^3/uL (1.5-5.0); LYMPH % 27.2 % (24.0-44.0); MEAN CORPUSCULAR HEMOGLOBIN 31.3 pg (27.0-33.0); MEAN CORPUSCULAR HGB CONC 33.4 g/dl (32.0-36.5); MEAN CORPUSCULAR VOLUME 93.7 fl (80.0-96.0); MONO # 0.6 10^3/uL (0.0-0.8); MONO % 10.4 % (2.0-8.0); NEUTROPHILS # 3.1 10^3/uL (1.5-8.5); NEUTROPHILS % 58.4 % (36.0-66.0); PLATELET COUNT, AUTOMATED 159 10^3/uL (150-450); RED BLOOD COUNT 4.41 10^6/uL (4.30-6.10); WHITE BLOOD COUNT 5.3 10^3/uL (4.0-10.0)
[2023-01-22 09:46] LABS: CREATININE, URINE 109.2 MG/DL; MAU/CREAT RATIO 307.6 MCG/MG (0.0-30.0)
[2023-01-22 09:47] LABS: ALBUMIN 3.6 G/DL (3.2-5.2); BILIRUBIN,TOTAL 0.5 MG/DL (0.3-1.2); CALCIUM LEVEL 9.1 MG/DL (8.3-10.6); CHOLESTEROL RISK RATIO 4.07 (<5); CREATININE FOR GFR 1.5 MG/DL (0.70-1.30); GLOMERULAR FILTRATION RATE 48.6 (>42); HDL CHOLESTEROL 39.8 MG/DL (>40); LDL CHOLESTEROL 106.4 MG/DL (<100); NON-HDL-C 122.2 MG/DL; POTASSIUM SERUM 4.5 MMOL/L (3.5-5.1); TOTAL PROTEIN 5.9 G/DL (5.7-8.2)
[2023-01-22 09:51] LABS: THYROID STIMULATING HORMONE 3.244 uIU/ML (0.55-4.78)
[2023-01-22 09:52] LABS: TOTAL 25(OH) VITAMIN D 108.2 NG/ML (20.0-100.0)
== END ==
LOC: M LAB 08:23
PROVIDERS: ATTEND Internal Medicine
DX: E78.00 Pure hypercholesterolemia, unspecified (principal); I12.9 Hypertensive chronic kidney disease with stage 1 through stage 4 chronic kidney disease, or unspecified chronic kidney disease; Z12.5 Encounter for screening for malignant neoplasm of prostate; E03.9 Hypothyroidism, unspecified; E55.9 Vitamin D deficiency, unspecified; N18.31 Chronic kidney disease, stage 3a
CPT/HCPCS: 36415; 80053; 80061; 82043; 82306; 84443; 85025; G0103

== ENCOUNTER → 2023-08-09 | Outpatient (CLI) | payer BC ==
[2023-08-09 11:22] LABS: BASO % 0.5 % (0.0-1.0); EOS # 0.1 10^3/uL (0.0-0.5); EOS % 2.2 % (0.0-3.0); HEMATOCRIT 41.3 % (42.0-52.0); HEMOGLOBIN 14.1 g/dl (13.5-17.5); LYMPH # 1.5 10^3/uL (1.5-5.0); LYMPH % 24.7 % (24.0-44.0); MEAN CORPUSCULAR HEMOGLOBIN 32.1 pg (27.0-33.0); MEAN CORPUSCULAR HGB CONC 34.1 g/dl (32.0-36.5); MEAN CORPUSCULAR VOLUME 94.1 fl (80.0-96.0); MONO # 0.5 10^3/uL (0.0-0.8); MONO % 9.1 % (2.0-8.0); NEUTROPHILS # 3.7 10^3/uL (1.5-8.5); NEUTROPHILS % 63.2 % (36.0-66.0); PLATELET COUNT, AUTOMATED 141 10^3/uL (150-450); RED BLOOD COUNT 4.39 10^6/uL (4.30-6.10); WHITE BLOOD COUNT 5.9 10^3/uL (4.0-10.0)
[2023-08-09 11:56] LABS: ALBUMIN 3.7 G/DL (3.2-5.2); BILIRUBIN,TOTAL 0.5 MG/DL (0.3-1.2); CALCIUM LEVEL 8.8 MG/DL (8.3-10.6); CHOLESTEROL RISK RATIO 4.35 (<5); CREATININE FOR GFR 1.44 MG/DL (0.70-1.30); GLOMERULAR FILTRATION RATE 50.9 (>42); HDL CHOLESTEROL 37.9 MG/DL (>40); LDL CHOLESTEROL 106.5 MG/DL (<100); NON-HDL-C 127.1 MG/DL; PTH INTACT 59.5 PG/ML (18.5-88.0); TOTAL PROTEIN 6.1 G/DL (5.7-8.2)
== END ==
LOC: M LAB 09:53
PROVIDERS: ATTEND Internal Medicine
DX: N18.31 Chronic kidney disease, stage 3a (principal); E78.00 Pure hypercholesterolemia, unspecified

== ENCOUNTER → 2024-02-18 | Outpatient (CLI) | payer BC ==
[2024-02-18 10:59] LABS: HEMATOCRIT 41.1 % (42.0-52.0); MEAN CORPUSCULAR HGB CONC 34.1 g/dl (32.0-36.5); MEAN CORPUSCULAR VOLUME 94.1 fl (80.0-96.0); PLATELET COUNT, AUTOMATED 135 10^3/uL (150-450); RED BLOOD COUNT 4.37 10^6/uL (4.30-6.10); WHITE BLOOD COUNT 5.9 10^3/uL (4.0-10.0)
[2024-02-18 11:21] LABS: PSA SCREENING 0.68 NG/ML (< 4.00)
[2024-02-18 11:25] LABS: THYROID STIMULATING HORMONE 1.787 uIU/ML (0.55-4.78); THYROXINE (T4) 8.1 UG/DL (4.5-10.9)
[2024-02-18 11:27] LABS: ALBUMIN 3.4 G/DL (3.2-5.2); BILIRUBIN,TOTAL 0.5 MG/DL (0.3-1.2); CALCIUM LEVEL 8.8 MG/DL (8.3-10.6); CHOLESTEROL RISK RATIO 3.7 (<5); CREATININE FOR GFR 1.52 MG/DL (0.70-1.30); GLOMERULAR FILTRATION RATE 47.7 (>42); HDL CHOLESTEROL 36.7 MG/DL (>40); LDL CHOLESTEROL 87.3 MG/DL (<100); NON-HDL-C 99.3 MG/DL; PHOSPHORUS LEVEL 3.5 MG/DL (2.4-5.1); POTASSIUM SERUM 4.9 MMOL/L (3.5-5.1); PTH INTACT 79.6 PG/ML (18.5-88.0); TOTAL PROTEIN 5.7 G/DL (5.7-8.2)
== END ==
LOC: M LAB 09:41
PROVIDERS: ATTEND Internal Medicine
DX: E03.9 Hypothyroidism, unspecified (principal); N18.31 Chronic kidney disease, stage 3a; E78.00 Pure hypercholesterolemia, unspecified; N04.20 Nephrotic syndrome with diffuse membranous glomerulonephritis, unspecified; I13.10 Hypertensive heart and chronic kidney disease without heart failure, with stage 1 through stage 4 chronic kidney disease, or unspecified chronic kidney disease; N40.1 Benign prostatic hyperplasia with lower urinary tract symptoms
CPT/HCPCS: 36415; 80053; 80061; 83970; 84100; 84436; 84443; 85027; G0103

== ENCOUNTER → 2024-09-08 | Outpatient (CLI) | payer BC ==
[2024-09-08 10:35] LABS: BASO % 0.6 % (0.0-1.0); EOS # 0.2 10^3/uL (0.0-0.5); EOS % 3.9 % (0.0-3.0); HEMOGLOBIN 14.3 g/dl (13.5-17.5); LYMPH # 1.1 10^3/uL (1.5-5.0); MEAN CORPUSCULAR HEMOGLOBIN 31.2 pg (27.0-33.0); MEAN CORPUSCULAR VOLUME 91.5 fl (80.0-96.0); MONO # 0.5 10^3/uL (0.0-0.8); MONO % 8.9 % (2.0-8.0); NEUTROPHILS # 3.3 10^3/uL (1.5-8.5); PLATELET COUNT, AUTOMATED 152 10^3/uL (150-450); RED BLOOD COUNT 4.59 10^6/uL (4.30-6.10); WHITE BLOOD COUNT 5.1 10^3/uL (4.0-10.0)
[2024-09-08 10:51] LABS: CREATININE, URINE 93.5 MG/DL
[2024-09-08 10:53] LABS: ALBUMIN 3.7 G/DL (3.2-5.2); BILIRUBIN,TOTAL 0.5 MG/DL (0.3-1.2); CALCIUM LEVEL 9.1 MG/DL (8.3-10.6); CHOLESTEROL RISK RATIO 3.88 (<5); CREATININE FOR GFR 1.35 MG/DL (0.70-1.30); GLOMERULAR FILTRATION RATE 54.6 (>42); HDL CHOLESTEROL 36.8 MG/DL (>40); LDL CHOLESTEROL 79.4 MG/DL (<100); NON-HDL-C 106.2 MG/DL; POTASSIUM SERUM 4.5 MMOL/L (3.5-5.1); TOTAL PROTEIN 5.9 G/DL (5.7-8.2)
[2024-09-08 11:04] LABS: MAU/CREAT RATIO 605.3 MCG/MG (0.0-30.0)
== END ==
LOC: M LAB 09:39
PROVIDERS: ATTEND Internal Medicine
DX: E03.9 Hypothyroidism, unspecified (principal); I10 Essential (primary) hypertension

== ENCOUNTER → 2024-11-19 | Outpatient (CLI) | payer BC ==
[2024-11-19 11:56] LABS: CALCIUM LEVEL 9.3 MG/DL (8.3-10.6); CREATININE FOR GFR 1.51 MG/DL (0.70-1.30); GLOMERULAR FILTRATION RATE 47.9 (>42)
== END ==
LOC: M LAB 10:04
PROVIDERS: ATTEND Internal Medicine Cardiovascular Disease
DX: I10 Essential (primary) hypertension (principal)